=== PATIENT | female | born 1980 | race Caucasian/White ===

== ENCOUNTER 2018-03-01 14:25 | Emergency (ER) | payer BC ==
[~2018-03-01] VITALS: Ht 172.7 cm; Wt 125.9 kg
[~2018-03-01 14:25] MED LIST: NO HOME MEDICATIONS; NORCO 325 MG-7.1 TAB PO
[2018-03-01] MEDS ORDERED: LOVENOX 4040 MG/0.4 SQ (14:39)
[2018-03-01] MEDS ORDERED: ROXICODONE 55 MG/TAB PO (14:40)
[2018-03-01] MEDS ORDERED: ADVIL200 MG PO (14:42)
[2018-03-01 14:56] LABS: COLLECTION METHOD CLEAN CATCH
[2018-03-01 15:00] LABS: BASO % 0.3 % (0.0-2.0); EOS # 0.1 (0.0-0.7); EOS % 0.9 % (0-4.0); GRAN # 8.2 (1.4-6.5); HEMOGLOBIN 10.4 g/dl (12.5-16.0); LYMPH # 1.4 (1.2-3.4); LYMPH % 13.5 % (20.0-51.0); MEAN CELL VOLUME 82 fl (80.0-100.0); MEAN CORPUSCULAR HEMOGLOBIN 25 pg (27.0-31.0); MEAN CORPUSCULAR HGB CONC 31 g/dl (33.0-37.0); MEAN PLATELET VOLUME 8.9 fl (7.4-10.4); MONO # 0.7 (0.1-0.6); MONO % 6.2 % (1.7-9.3); PLATELET COUNT 461 K/mm3 (130-400); RED BLOOD COUNT 4.14 M/mm3 (4.10-5.30); REDCELL DISTRIBUTION WIDTH-CV 13.4 % (11.5-14.5)
[2018-03-01 15:02] LABS: HEMATOCRIT 34.1 % (37.0-47.0)
[2018-03-01 15:02] LABS: PH 6 (5-8); SQUAMOUS EPITHELIAL None Seen /hpf; URINE APPEARANCE Clear; URINE BACTERIA None Seen /hpf; URINE BILIRUBIN Negative (NEGATIVE); URINE BLOOD Negative (NEGATIVE); URINE COLOR Straw; URINE GLUCOSE Negative (NEGATIVE); URINE KETONE Negative (NEGATIVE); URINE LEUKOCYTE ESTERASE Negative (NEGATIVE); URINE NITRATE Negative (NEGATIVE); URINE PROTEIN(semi-quant) Negative (NEGATIVE); URINE RBC 0-2 /hpf; URINE UROBILINOGEN Negative (NEGATIVE)
[2018-03-01 15:10] LABS: ALBUMIN 4.3 gm/dL (3.5-5.0); BILIRUBIN,TOTAL 0.5 mg/dL (0.0-1.0); CALCIUM 9.4 mg/dL (8.4-10.2); CREATININE, serum 0.9 mg/dL (0.52-1.25); TOTAL PROTEIN 7.7 gm/dL (6.4-8.2)
[2018-03-01 16:06] VITALS: BP 123/65; PULSE 92; TEMP 99.2
== END 2018-03-01 16:17 | disposition home or self-care (01) ==
LOC: COL.ER 14:25
PROVIDERS: Physician Assistant
DX: M79.672 Pain in left foot (principal); F41.9 Anxiety disorder, unspecified; R50.9 Fever, unspecified; Z90.710 Acquired absence of both cervix and uterus; Z85.43 Personal history of malignant neoplasm of ovary